=== PATIENT | female | born 1960 | race Caucasian/White ===

== ENCOUNTER 2019-12-18 13:14 | Emergency (ER) | payer OTHER ==
[~2019-12-18] VITALS: Ht 177.8 cm; Wt 54.4 kg
[~2019-12-18 13:14] MED LIST: BENTYL20 MG PO; CIPROFLOXACIN500 MG PO; FLAGYL500 MG PO; HYDROCODONE BIT1 T11 PO; LOMOTIL 0.025 M1 TA1 PO; PREDNICOT20 MG PO; ULTRAM50 MG PO
[2019-12-18 15:11] LABS: BASO # 0.1 10*3/uL (0.0-0.1); BASO % 0.9 % (0.0-1.0); EOS # 0.2 10*3/uL (0.0-0.4); EOS % 2.3 % (1.0-4.0); HEMATOCRIT 39.7 % (37.0-47.0); LYMPH # 1.6 10*3/uL (1.3-4.4); MEAN CELL VOLUME 95.4 fl (81.0-99.0); MEAN CORPUSCULAR HGB 31.5 pg (27.0-31.0); MEAN PLATELET VOLUME 9.3 fl (9.6-12.3); MONO # 0.6 10*3/uL (0.1-1.0); MONO % 7.1 % (3.0-9.0); NEUT # 5.5 10*3/uL (2.3-7.9); NEUT % 69.6 % (47.0-73.0); PLATELET COUNT AUTOMATED 363 10*3/uL (130-400); RED BLOOD COUNT 4.16 10*6/uL (4.10-5.10); RED CELL DISTRI WIDTH 12.4 % (0-14.5); WHITE BLOOD COUNT 7.9 10*3/uL (4.8-10.8)
[2019-12-18 15:22] LABS: ACT PARTIAL THROMBO TIME 27.3 SECONDS (20.0-32.1); INTERNATIONAL NORM RATIO 0.9 (2.0-3.5)
[2019-12-18 15:31] LABS: ALBUMIN 3.7 gm/dl (3.1-4.5); ALKALINE PHOSPHATASE 83 U/L (45-117); BUN 10 mg/dl (7-24); CHLORIDE 108 mmol/L (98-107); CREATININE 0.63 mg/dL (0.55-1.02); LIPASE 116 U/L (73-393); POTASSIUM 3.8 mmol/L (3.5-5.1); SGOT/AST 15 IU/L (3-35); SGPT/ALT 14 U/L (12-78); SODIUM 142 mmol/L (136-145); TOTAL PROTEIN 7.3 gm/dL (6.4-8.2); TROPONIN I < 0.015 ng/ml (<0.045)
[2019-12-18 16:25] LABS: BILIRUBIN Negative (Negative); BLOOD Negative (Negative); CLARITY Clear (Clear); COLOR Yellow (Yellow); GLUCOSE Negative (Negative); KETONE Negative (Negative); LEUKO ESTERASE Trace (Negative); NITRITE Negative (Negative)
[2019-12-18 16:46] LABS: EPITHELIAL CELLS 0-2; WBC 0-2 wbc/hpf (0-5)
[2019-12-18] MEDS ORDERED: PERCOCET 5-3251 EACH PO (17:11)
[2019-12-18] MEDS ORDERED: ZOFRAN4 MG PO (17:11)
== END 2019-12-18 17:12 | disposition home or self-care (01) ==
LOC: ED 13:14
PROVIDERS: Emergency Medicine
DX: R10.9 Unspecified abdominal pain (principal); Z91.041 Radiographic dye allergy status; Z88.8 Allergy status to other drugs, medicaments and biological substances; Z88.5 Allergy status to narcotic agent; Z79.899 Other long term (current) drug therapy

== ENCOUNTER 2019-12-22 10:34 | Emergency (ER) | payer OTHER ==
[~2019-12-22] VITALS: Wt 54.4 kg
[~2019-12-22 10:34] MED LIST changes: +PERCOCET 5-3251 EACH PO; +ZOFRAN4 MG PO
[2019-12-22 10:59] LABS: BASO # 0.1 10*3/uL (0.0-0.1); BASO % 0.9 % (0.0-1.0); EOS # 0.3 10*3/uL (0.0-0.4); LYMPH # 1.2 10*3/uL (1.3-4.4); LYMPH % 12.3 % (27.0-41.0); MEAN CELL VOLUME 96.7 fl (81.0-99.0); MEAN CORPUSCULAR HGB 31.6 pg (27.0-31.0); MEAN CORPUSCULAR HGB CONC 32.7 g/dl (33.0-37.0); MEAN PLATELET VOLUME 9.2 fl (9.6-12.3); MONO # 0.6 10*3/uL (0.1-1.0); MONO % 6.2 % (3.0-9.0); NEUT # 7.8 10*3/uL (2.3-7.9); NEUT % 77.3 % (47.0-73.0); PLATELET COUNT AUTOMATED 369 10*3/uL (130-400); RED BLOOD COUNT 4.24 10*6/uL (4.10-5.10); RED CELL DISTRI WIDTH 12.3 % (0-14.5)
[2019-12-22 11:15] LABS: ALBUMIN 3.9 gm/dl (3.1-4.5); ALKALINE PHOSPHATASE 87 U/L (45-117); BUN 8 mg/dl (7-24); CHLORIDE 109 mmol/L (98-107); CREATININE 0.71 mg/dL (0.55-1.02); LIPASE 88 U/L (73-393); SGOT/AST 19 IU/L (3-35); SGPT/ALT 15 U/L (12-78); SODIUM 141 mmol/L (136-145); TOTAL PROTEIN 7.5 gm/dL (6.4-8.2)
[2019-12-22] MEDS ORDERED: PRILOSEC20 M1 PO (12:04)
[2019-12-22] MEDS ORDERED: REGLAN5 MG PO (12:04)
== END 2019-12-22 12:08 | disposition home or self-care (01) ==
LOC: ED 10:34
PROVIDERS: Nurse Practitioner Family
DX: R10.32 Left lower quadrant pain (principal); Z91.041 Radiographic dye allergy status; Z88.5 Allergy status to narcotic agent; Z88.8 Allergy status to other drugs, medicaments and biological substances; Z79.899 Other long term (current) drug therapy

== ENCOUNTER 2020-01-29 15:49 | Emergency (ER) | payer OTHER ==
[~2020-01-29] VITALS: Wt 54.4 kg
[~2020-01-29 15:49] MED LIST changes: +PRILOSEC20 M1 PO; +REGLAN5 MG PO
[2020-01-29 18:13] LABS: BASO # 0.1 10*3/uL (0.0-0.1); BASO % 0.7 % (0.0-1.0); EOS # 0.1 10*3/uL (0.0-0.4); EOS % 1.4 % (1.0-4.0); HEMATOCRIT 37.6 % (37.0-47.0); LYMPH # 1.7 10*3/uL (1.3-4.4); LYMPH % 19.8 % (27.0-41.0); MEAN CELL VOLUME 94.5 fl (81.0-99.0); MEAN CORPUSCULAR HGB 30.9 pg (27.0-31.0); MEAN CORPUSCULAR HGB CONC 32.7 g/dl (33.0-37.0); MEAN PLATELET VOLUME 9.4 fl (9.6-12.3); MONO # 0.5 10*3/uL (0.1-1.0); MONO % 5.7 % (3.0-9.0); NEUT # 6.2 10*3/uL (2.3-7.9); NEUT % 72.2 % (47.0-73.0); PLATELET COUNT AUTOMATED 337 10*3/uL (130-400); RED BLOOD COUNT 3.98 10*6/uL (4.10-5.10); RED CELL DISTRI WIDTH 12.5 % (0-14.5); WHITE BLOOD COUNT 8.5 10*3/uL (4.8-10.8)
[2020-01-29 18:22] LABS: BILIRUBIN Negative (Negative); BLOOD 3+ (Negative); CLARITY Cloudy (Clear); COLOR Orange (Yellow); GLUCOSE Negative (Negative); KETONE Trace (Negative); LEUKO ESTERASE 1+ (Negative); NITRITE Negative (Negative); SPECIFIC GRAVITY 1.025 (1.001-1.030)
[2020-01-29 18:29] LABS: ALBUMIN 3.6 gm/dl (3.1-4.5); ALKALINE PHOSPHATASE 82 U/L (45-117); BUN 10 mg/dl (7-24); CHLORIDE 112 mmol/L (98-107); CREATININE 0.66 mg/dL (0.55-1.02); POTASSIUM 3.5 mmol/L (3.5-5.1); SGOT/AST 13 IU/L (3-35); SGPT/ALT 18 U/L (12-78); SODIUM 143 mmol/L (136-145); TOTAL PROTEIN 6.8 gm/dL (6.4-8.2)
[2020-01-29 18:43] LABS: BACTERIA 1+; EPITHELIAL CELLS 21-30; RBC 0-2 rbc/hpf (0-2)
[2020-01-29] MEDS ORDERED: KEFLEX500 M1 PO (21:36)
== END 2020-01-29 21:56 | disposition left against medical advice (07) ==
LOC: ED 15:49
PROVIDERS: Nurse Practitioner
DX: N39.0 Urinary tract infection, site not specified (principal); K56.7 Ileus, unspecified; Z88.8 Allergy status to other drugs, medicaments and biological substances; Z88.5 Allergy status to narcotic agent; Z91.041 Radiographic dye allergy status

== ENCOUNTER 2020-04-01 14:12 | Emergency (ER) | payer OTHER ==
[~2020-04-01] VITALS: Ht 177.8 cm; Wt 54.4 kg
[~2020-04-01 14:12] MED LIST changes: +KEFLEX500 M1 PO
[2020-04-01 14:48] LABS: BASO # 0.1 10*3/uL (0.0-0.1); EOS # 0.2 10*3/uL (0.0-0.4); EOS % 2.6 % (1.0-4.0); HEMATOCRIT 40.6 % (37.0-47.0); LYMPH # 2.1 10*3/uL (1.3-4.4); LYMPH % 23.4 % (27.0-41.0); MEAN CELL VOLUME 97.4 fl (81.0-99.0); MEAN CORPUSCULAR HGB 31.7 pg (27.0-31.0); MEAN CORPUSCULAR HGB CONC 32.5 g/dl (33.0-37.0); MEAN PLATELET VOLUME 9.6 fl (9.6-12.3); MONO # 0.6 10*3/uL (0.1-1.0); MONO % 6.1 % (3.0-9.0); NEUT % 66.7 % (47.0-73.0); PLATELET COUNT AUTOMATED 351 10*3/uL (130-400); RED BLOOD COUNT 4.17 10*6/uL (4.10-5.10); RED CELL DISTRI WIDTH 13.1 % (0-14.5)
[2020-04-01 15:05] LABS: ALBUMIN 4.1 gm/dl (3.1-4.5); ALKALINE PHOSPHATASE 100 U/L (45-117); BUN 12 mg/dl (7-24); CHLORIDE 108 mmol/L (98-107); CREATININE 1.13 mg/dL (0.55-1.02); LIPASE 88 U/L (73-393); POTASSIUM 3.7 mmol/L (3.5-5.1); SGOT/AST 14 IU/L (3-35); SGPT/ALT 20 U/L (12-78); SODIUM 141 mmol/L (136-145); TOTAL PROTEIN 7.9 gm/dL (6.4-8.2)
[2020-04-01 15:21] LABS: BILIRUBIN Negative (Negative); BLOOD Negative (Negative); CLARITY Cloudy (Clear); COLOR Dark Yellow (Yellow); GLUCOSE Negative (Negative); KETONE Trace (Negative); LEUKO ESTERASE 1+ (Negative); NITRITE Negative (Negative); SPECIFIC GRAVITY >= 1.030 (1.001-1.030)
[2020-04-01 15:33] LABS: BACTERIA 1+; EPITHELIAL CELLS 16-20
[2020-04-01] MEDS ORDERED: PERCOCET 5-3251 EACH PO (17:07)
[2020-04-01] MEDS ORDERED: CIPRO250 MG PO (17:16)
== END 2020-04-01 17:56 | disposition home or self-care (01) ==
LOC: ED 14:12
PROVIDERS: Nurse Practitioner
DX: N39.0 Urinary tract infection, site not specified (principal); K52.9 Noninfective gastroenteritis and colitis, unspecified; F17.200 Nicotine dependence, unspecified, uncomplicated; Z91.041 Radiographic dye allergy status; Z88.6 Allergy status to analgesic agent; Z88.5 Allergy status to narcotic agent; Z79.2 Long term (current) use of antibiotics; Z79.899 Other long term (current) drug therapy; Z90.49 Acquired absence of other specified parts of digestive tract; Z90.711 Acquired absence of uterus with remaining cervical stump; Z87.442 Personal history of urinary calculi

== ENCOUNTER 2020-04-03 12:20 | Emergency (ER) | payer OTHER ==
[~2020-04-03] VITALS: Wt 54.4 kg
[~2020-04-03 12:20] MED LIST changes: +CIPRO250 MG PO
[2020-04-03 12:57] LABS: BASO # 0.1 10*3/uL (0.0-0.1); BASO % 0.7 % (0.0-1.0); EOS # 0.1 10*3/uL (0.0-0.4); EOS % 1.5 % (1.0-4.0); HEMATOCRIT 38.3 % (37.0-47.0); LYMPH # 1.4 10*3/uL (1.3-4.4); MEAN CELL VOLUME 96.7 fl (81.0-99.0); MEAN CORPUSCULAR HGB 31.8 pg (27.0-31.0); MEAN CORPUSCULAR HGB CONC 32.9 g/dl (33.0-37.0); MEAN PLATELET VOLUME 9.8 fl (9.6-12.3); MONO # 0.5 10*3/uL (0.1-1.0); MONO % 5.4 % (3.0-9.0); NEUT # 7.5 10*3/uL (2.3-7.9); NEUT % 78.1 % (47.0-73.0); PLATELET COUNT AUTOMATED 353 10*3/uL (130-400); RED BLOOD COUNT 3.96 10*6/uL (4.10-5.10); RED CELL DISTRI WIDTH 12.9 % (0-14.5); WHITE BLOOD COUNT 9.6 10*3/uL (4.8-10.8)
[2020-04-03 13:12] LABS: ALBUMIN 3.7 gm/dl (3.1-4.5); ALKALINE PHOSPHATASE 89 U/L (45-117); BUN 10 mg/dl (7-24); CHLORIDE 110 mmol/L (98-107); CREATININE 0.69 mg/dL (0.55-1.02); LIPASE 90 U/L (73-393); POTASSIUM 3.9 mmol/L (3.5-5.1); SGOT/AST 8 IU/L (3-35); SGPT/ALT 17 U/L (12-78); SODIUM 139 mmol/L (136-145); TOTAL PROTEIN 7.1 gm/dL (6.4-8.2)
[2020-04-03 13:19] LABS: BILIRUBIN Negative (Negative); BLOOD Negative (Negative); CLARITY Clear (Clear); COLOR Yellow (Yellow); GLUCOSE Negative (Negative); KETONE Negative (Negative); LEUKO ESTERASE Negative (Negative); NITRITE Negative (Negative); PH 7.5 (4.5-8.0); SPECIFIC GRAVITY 1.015 (1.001-1.030); UROBILINOGEN 0.2 E.U./dl (0.0-1.0)
[2020-04-03 13:29] LABS: BACTERIA TRACE; RBC 0-2 rbc/hpf (0-2); WBC 0-2 wbc/hpf (0-5)
== END 2020-04-03 14:38 | disposition home or self-care (01) ==
LOC: ED 12:20
PROVIDERS: Emergency Medicine
DX: R10.9 Unspecified abdominal pain (principal); Z91.041 Radiographic dye allergy status; Z88.5 Allergy status to narcotic agent; Z88.8 Allergy status to other drugs, medicaments and biological substances; Z79.899 Other long term (current) drug therapy

== ENCOUNTER → 2020-07-27 | Emergency (ER) | payer OTHER ==
[~2020-07-27] VITALS: Ht 177.8 cm; Wt 59.0 kg
== END ==
LOC: ED 15:56
DX: R07.0 Pain in throat (principal); F17.200 Nicotine dependence, unspecified, uncomplicated; Z85.01 Personal history of malignant neoplasm of esophagus; Z85.21 Personal history of malignant neoplasm of larynx; Z91.041 Radiographic dye allergy status; Z88.6 Allergy status to analgesic agent; Z88.5 Allergy status to narcotic agent; Z88.8 Allergy status to other drugs, medicaments and biological substances; Z79.2 Long term (current) use of antibiotics; Z79.899 Other long term (current) drug therapy; Z90.711 Acquired absence of uterus with remaining cervical stump; Z90.49 Acquired absence of other specified parts of digestive tract

== ENCOUNTER 2020-08-30 10:59 | Emergency (ER) | payer OTHER ==
[~2020-08-30] VITALS: Ht 177.8 cm; Wt 59.0 kg
[2020-08-30 12:20] LABS: BASO # 0.1 10*3/uL (0.0-0.1); BASO % 0.6 % (0.0-1.0); EOS # 0.1 10*3/uL (0.0-0.4); EOS % 1.4 % (1.0-4.0); LYMPH # 1.3 10*3/uL (1.3-4.4); LYMPH % 15.1 % (27.0-41.0); MEAN CELL VOLUME 96.2 fl (81.0-99.0); MEAN CORPUSCULAR HGB 31.3 pg (27.0-31.0); MEAN CORPUSCULAR HGB CONC 32.6 g/dl (33.0-37.0); MEAN PLATELET VOLUME 9.7 fl (9.6-12.3); MONO # 0.6 10*3/uL (0.1-1.0); MONO % 6.8 % (3.0-9.0); NEUT # 6.5 10*3/uL (2.3-7.9); NEUT % 75.9 % (47.0-73.0); PLATELET COUNT AUTOMATED 353 10*3/uL (130-400); RED BLOOD COUNT 4.47 10*6/uL (4.10-5.10); RED CELL DISTRI WIDTH 12.9 % (0-14.5); WHITE BLOOD COUNT 8.5 10*3/uL (4.8-10.8)
[2020-08-30 12:38] LABS: ALBUMIN 3.9 gm/dl (3.1-4.5); ALKALINE PHOSPHATASE 88 U/L (45-117); BUN 9 mg/dl (7-24); CHLORIDE 109 mmol/L (98-107); CREATININE 0.65 mg/dL (0.55-1.02); LIPASE 73 U/L (73-393); POTASSIUM 3.8 mmol/L (3.5-5.1); SGOT/AST 13 IU/L (3-35); SGPT/ALT 16 U/L (12-78); SODIUM 140 mmol/L (136-145); TOTAL PROTEIN 7.4 gm/dL (6.4-8.2)
[2020-08-30 13:35] LABS: BILIRUBIN 1+ (Negative); BLOOD Negative (Negative); CLARITY Clear (Clear); COLOR Dark Yellow (Yellow); GLUCOSE Negative (Negative); KETONE 1+ (Negative); LEUKO ESTERASE Trace (Negative); NITRITE Negative (Negative); PH 7.5 (4.5-8.0); SPECIFIC GRAVITY >= 1.030 (1.001-1.030)
[2020-08-30 14:05] LABS: MUCOUS 1+
[2020-08-30] MEDS ORDERED: HYDROCODONE-AC1 EAC1 PO (16:44)
[2020-08-30] MEDS ORDERED: ZOFRAN4 MG PO (16:44)
== END 2020-08-30 17:15 | disposition home or self-care (01) ==
LOC: ED 10:59
PROVIDERS: Physician Assistant
DX: R10.9 Unspecified abdominal pain (principal); R19.7 Diarrhea, unspecified; F17.200 Nicotine dependence, unspecified, uncomplicated; Z91.041 Radiographic dye allergy status; Z88.6 Allergy status to analgesic agent; Z88.5 Allergy status to narcotic agent; Z88.8 Allergy status to other drugs, medicaments and biological substances; Z79.899 Other long term (current) drug therapy; Z79.2 Long term (current) use of antibiotics; Z90.711 Acquired absence of uterus with remaining cervical stump; Z90.49 Acquired absence of other specified parts of digestive tract

== ENCOUNTER 2020-09-19 10:27 | Emergency (ER) | payer OTHER ==
[~2020-09-19] VITALS: Ht 177.8 cm; Wt 59.9 kg
[~2020-09-19 10:27] MED LIST changes: +HYDROCODONE-AC1 EAC1 PO
[2020-09-19 11:53] LABS: BASO # 0.1 10*3/uL (0.0-0.1); BASO % 0.6 % (0.0-1.0); EOS # 0.1 10*3/uL (0.0-0.4); EOS % 1.2 % (1.0-4.0); HEMATOCRIT 45.1 % (37.0-47.0); LYMPH # 1.4 10*3/uL (1.3-4.4); LYMPH % 13.2 % (27.0-41.0); MEAN CELL VOLUME 96.8 fl (81.0-99.0); MEAN CORPUSCULAR HGB 31.3 pg (27.0-31.0); MEAN CORPUSCULAR HGB CONC 32.4 g/dl (33.0-37.0); MONO # 0.8 10*3/uL (0.1-1.0); MONO % 7.2 % (3.0-9.0); NEUT # 8.1 10*3/uL (2.3-7.9); NEUT % 77.5 % (47.0-73.0); PLATELET COUNT AUTOMATED 380 10*3/uL (130-400); RED BLOOD COUNT 4.66 10*6/uL (4.10-5.10); RED CELL DISTRI WIDTH 12.8 % (0-14.5); WHITE BLOOD COUNT 10.4 10*3/uL (4.8-10.8)
[2020-09-19 11:56] LABS: BILIRUBIN 1+ (Negative); BLOOD Negative (Negative); CLARITY Cloudy (Clear); COLOR Dark Yellow (Yellow); GLUCOSE Negative (Negative); KETONE Trace (Negative); LEUKO ESTERASE 1+ (Negative); NITRITE Negative (Negative); SPECIFIC GRAVITY >= 1.030 (1.001-1.030)
[2020-09-19 12:25] LABS: RBC 0-2 rbc/hpf (0-2)
[2020-09-19 12:26] LABS: BACTERIA 1+; MUCOUS 2+; YEAST TRACE
[2020-09-19 12:27] LABS: ALBUMIN 4.1 gm/dl (3.1-4.5); ALKALINE PHOSPHATASE 92 U/L (45-117); BUN 12 mg/dl (7-24); CHLORIDE 109 mmol/L (98-107); CREATININE 0.76 mg/dL (0.55-1.02); LIPASE 80 U/L (73-393); POTASSIUM 4.3 mmol/L (3.5-5.1); SGOT/AST 27 IU/L (3-35); SGPT/ALT 20 U/L (12-78); SODIUM 138 mmol/L (136-145); TOTAL PROTEIN 8.2 gm/dL (6.4-8.2)
[2020-09-19] MEDS ORDERED: PERCOCET 5-3251 EACH PO (14:10)
[2020-09-19] MEDS ORDERED: ZOFRAN4 MG PO (14:34)
== END 2020-09-19 14:28 | disposition home or self-care (01) ==
LOC: ED 10:27
PROVIDERS: Physician Assistant
DX: R10.30 Lower abdominal pain, unspecified (principal); R11.0 Nausea; R63.0 Anorexia; Z91.041 Radiographic dye allergy status; Z88.6 Allergy status to analgesic agent; Z79.899 Other long term (current) drug therapy

== ENCOUNTER 2020-10-18 18:36 | Emergency (ER) | payer OTHER ==
[~2020-10-18] VITALS: Wt 59.0 kg
[2020-10-18 19:43] LABS: BILIRUBIN Negative (Negative); BLOOD 3+ (Negative); CLARITY Clear (Clear); COLOR Red (Yellow); GLUCOSE Negative (Negative); KETONE Negative (Negative); LEUKO ESTERASE 1+ (Negative); NITRITE Negative (Negative); PH 6.5 (4.5-8.0); UROBILINOGEN 0.2 E.U./dl (0.0-1.0)
[2020-10-18 19:53] LABS: BACTERIA 1+; RBC 0-2 rbc/hpf (0-2)
[2020-10-18] MEDS ORDERED: CIPRO500 MG PO (21:20)
== END 2020-10-18 21:56 | disposition home or self-care (01) ==
LOC: ED 18:36
PROVIDERS: Internal Medicine
DX: N39.0 Urinary tract infection, site not specified (principal); F17.200 Nicotine dependence, unspecified, uncomplicated; Z88.6 Allergy status to analgesic agent; Z91.041 Radiographic dye allergy status; Z79.899 Other long term (current) drug therapy

== ENCOUNTER 2020-12-23 20:11 | Emergency (ER) | payer OTHER ==
[~2020-12-23] VITALS: Ht 177.8 cm; Wt 59.0 kg
[~2020-12-23 20:11] MED LIST changes: +CIPRO500 MG PO
[2020-12-23] MEDS ORDERED: MEDROL DOSEPAK4 MG PO (22:55)
== END 2020-12-23 23:33 | disposition home or self-care (01) ==
LOC: ED 20:11
DX: G89.29 Other chronic pain (principal); M54.50 Low back pain, unspecified; F17.200 Nicotine dependence, unspecified, uncomplicated; Z91.041 Radiographic dye allergy status; Z88.6 Allergy status to analgesic agent

== ENCOUNTER 2021-01-24 13:51 | Emergency (ER) | payer OTHER ==
[~2021-01-24] VITALS: Wt 59.0 kg
[~2021-01-24 13:51] MED LIST changes: +MEDROL DOSEPAK4 MG PO
[2021-01-24] MEDS ORDERED: PREDNISONE20 M1 PO (15:33)
== END 2021-01-24 15:49 | disposition home or self-care (01) ==
LOC: ED 13:51
DX: S30.0XXA Contusion of lower back and pelvis, initial encounter (principal); Z88.6 Allergy status to analgesic agent; W01.0XXA Fall on same level from slipping, tripping and stumbling without subsequent striking against object, initial encounter; Y93.89 Activity, other specified; Y92.89 Other specified places as the place of occurrence of the external cause; Y99.8 Other external cause status

== ENCOUNTER 2021-02-17 21:35 | Emergency (ER) | payer OTHER ==
[~2021-02-17] VITALS: Ht 177.8 cm; Wt 59.0 kg
[~2021-02-17 21:35] MED LIST changes: +PREDNISONE20 M1 PO
[2021-02-17 22:22] LABS: BILIRUBIN Negative (Negative); BLOOD Trace-Intact (Negative); CLARITY Clear (Clear); COLOR Yellow (Yellow); GLUCOSE Negative (Negative); KETONE Negative (Negative); LEUKO ESTERASE 1+ (Negative); NITRITE Negative (Negative); PH 7.5 (4.5-8.0); SPECIFIC GRAVITY 1.015 (1.001-1.030)
== END 2021-02-18 00:26 | disposition left against medical advice (07) ==
LOC: ED 21:35
PROVIDERS: Internal Medicine
DX: M54.50 Low back pain, unspecified (principal); Z91.041 Radiographic dye allergy status; Z88.6 Allergy status to analgesic agent

== ENCOUNTER 2021-07-11 10:03 | Emergency (ER) | payer OTHER ==
[~2021-07-11] VITALS: Ht 175.2 cm; Wt 59.0 kg
[2021-07-11] MEDS ORDERED: Motrin,Rufen800 MG PO (10:58)
== END 2021-07-11 10:56 | disposition home or self-care (01) ==
LOC: ED 10:03
DX: M54.50 Low back pain, unspecified (principal); Z91.041 Radiographic dye allergy status; Z88.6 Allergy status to analgesic agent

== ENCOUNTER 2021-08-16 12:38 | Emergency (ER) | payer OTHER ==
[~2021-08-16] VITALS: Wt 61.2 kg
[~2021-08-16 12:38] MED LIST changes: +Motrin,Rufen800 MG PO
[2021-08-16] MEDS ORDERED: IBU800 M1 PO (13:18)
== END 2021-08-16 13:24 | disposition home or self-care (01) ==
LOC: ED 12:38
DX: M54.40 Lumbago with sciatica, unspecified side (principal); Z88.6 Allergy status to analgesic agent; Z91.041 Radiographic dye allergy status; Z90.49 Acquired absence of other specified parts of digestive tract; Z90.710 Acquired absence of both cervix and uterus

== ENCOUNTER 2022-02-20 14:23 | Emergency (ER) | payer OTHER ==
[~2022-02-20] VITALS: Wt 57.6 kg
[~2022-02-20 14:23] MED LIST changes: +IBU800 M1 PO
[2022-02-20 14:59] LABS: BASO # 0.1 10*3/uL (0.0-0.1); BASO % 1.1 % (0.0-1.0); EOS # 0.2 10*3/uL (0.0-0.4); EOS % 2.9 % (1.0-4.0); HEMATOCRIT 36.7 % (37.0-47.0); LYMPH # 2.1 10*3/uL (1.3-4.4); LYMPH % 28.6 % (27.0-41.0); MEAN CELL VOLUME 95.8 fl (81.0-99.0); MEAN CORPUSCULAR HGB 32.4 pg (27.0-31.0); MEAN CORPUSCULAR HGB CONC 33.8 g/dl (33.0-37.0); MEAN PLATELET VOLUME 9.6 fl (9.6-12.3); MONO # 0.6 10*3/uL (0.1-1.0); MONO % 8.2 % (3.0-9.0); NEUT # 4.4 10*3/uL (2.3-7.9); NEUT % 59.1 % (47.0-73.0); PLATELET COUNT AUTOMATED 310 10*3/uL (130-400); RED BLOOD COUNT 3.83 10*6/uL (4.10-5.10); RED CELL DISTRI WIDTH 13.5 % (0-14.5); WHITE BLOOD COUNT 7.5 10*3/uL (4.8-10.8)
[2022-02-20 15:15] LABS: ALKALINE PHOSPHATASE 66 U/L (46-116); BUN 7 mg/dl (9-23); CHLORIDE 108 mmol/L (98-107); POTASSIUM 3.5 mmol/L (3.4-5.1); TOTAL PROTEIN 6.6 gm/dL (6.0-8.0)
[2022-02-20 15:17] LABS: SGPT/ALT < 7 U/L (10-49)
[2022-02-20 15:31] LABS: BILIRUBIN Negative (Negative); BLOOD Negative (Negative); CLARITY Clear (Clear); COLOR Yellow (Yellow); GLUCOSE Negative (Negative); KETONE Negative (Negative); LEUKO ESTERASE Negative (Negative); NITRITE Negative (Negative); PH 6.5 (4.5-8.0); SPECIFIC GRAVITY <= 1.005 (1.001-1.030); UROBILINOGEN 0.2 E.U./dl (0.0-1.0)
[2022-02-20 15:58] LABS: BACTERIA TRACE
[2022-02-20 15:59] LABS: RBC 0-2 rbc/hpf (0-2); WBC 0-2 wbc/hpf (0-5)
[2022-02-20] MEDS ORDERED: PREDNISONE20 M1 PO (16:14)
[2022-02-20] MEDS ORDERED: Motrin,Rufen800 MG PO (16:15)
== END 2022-02-20 16:30 | disposition home or self-care (01) ==
LOC: ED 14:23
PROVIDERS: Nurse Practitioner Family
DX: S39.012A Strain of muscle, fascia and tendon of lower back, initial encounter (principal); Z87.442 Personal history of urinary calculi; Z91.041 Radiographic dye allergy status; Z88.5 Allergy status to narcotic agent; Z88.8 Allergy status to other drugs, medicaments and biological substances; Z90.710 Acquired absence of both cervix and uterus; Z90.49 Acquired absence of other specified parts of digestive tract; X58.XXXA Exposure to other specified factors, initial encounter; Y93.89 Activity, other specified; Y92.89 Other specified places as the place of occurrence of the external cause; Y99.8 Other external cause status

== ENCOUNTER 2022-03-16 11:09 | Emergency (ER) | payer OTHER ==
[~2022-03-16] VITALS: Ht 177.8 cm; Wt 57.6 kg
[2022-03-16 12:05] LABS: BILIRUBIN Negative (Negative); BLOOD Negative (Negative); CLARITY Clear (Clear); COLOR Yellow (Yellow); GLUCOSE Negative (Negative); KETONE Negative (Negative); LEUKO ESTERASE Trace (Negative); NITRITE Negative (Negative); PH 6.5 (4.5-8.0)
[2022-03-16 12:25] LABS: BACTERIA 2+; EPITHELIAL CELLS 51-100; RBC 0-2 rbc/hpf (0-2); WBC 0-2 wbc/hpf (0-5)
[2022-03-16] MEDS ORDERED: OXYCODON-ACETA1 EACH PO (13:05)
[2022-03-16] MEDS ORDERED: IBU800 MG PO (13:05)
== END 2022-03-16 13:19 | disposition home or self-care (01) ==
LOC: ED 11:09
PROVIDERS: Nurse Practitioner Family
DX: M54.50 Low back pain, unspecified (principal); Z91.041 Radiographic dye allergy status; Z88.5 Allergy status to narcotic agent; Z88.8 Allergy status to other drugs, medicaments and biological substances; Z90.710 Acquired absence of both cervix and uterus; Z90.49 Acquired absence of other specified parts of digestive tract; Z79.899 Other long term (current) drug therapy

== ENCOUNTER 2022-03-29 11:34 | Emergency (ER) | payer OTHER ==
[~2022-03-29 11:34] MED LIST changes: +IBU800 MG PO; +OXYCODON-ACETA1 EACH PO
[2022-03-29 14:40] LABS: BASO # 0.1 10*3/uL (0.0-0.1); BASO % 0.6 % (0.0-1.0); EOS # 0.1 10*3/uL (0.0-0.4); EOS % 0.5 % (1.0-4.0); HEMATOCRIT 39.5 % (37.0-47.0); LYMPH # 2.5 10*3/uL (1.3-4.4); LYMPH % 18.1 % (27.0-41.0); MEAN CELL VOLUME 95.9 fl (81.0-99.0); MEAN CORPUSCULAR HGB 31.8 pg (27.0-31.0); MEAN CORPUSCULAR HGB CONC 33.2 g/dl (33.0-37.0); MEAN PLATELET VOLUME 9.8 fl (9.6-12.3); MONO # 1.5 10*3/uL (0.1-1.0); MONO % 10.8 % (3.0-9.0); NEUT # 9.4 10*3/uL (2.3-7.9); NEUT % 69.6 % (47.0-73.0); PLATELET COUNT AUTOMATED 323 10*3/uL (130-400); RED BLOOD COUNT 4.12 10*6/uL (4.10-5.10); RED CELL DISTRI WIDTH 13.2 % (0-14.5); WHITE BLOOD COUNT 13.6 10*3/uL (4.8-10.8)
[2022-03-29 14:47] LABS: BILIRUBIN 2+ (Negative); BLOOD Negative (Negative); CLARITY Cloudy (Clear); COLOR Dark Yellow (Yellow); GLUCOSE Negative (Negative); KETONE Trace (Negative); LEUKO ESTERASE 1+ (Negative); NITRITE Negative (Negative); PH 5.5 (4.5-8.0); SPECIFIC GRAVITY 1.025 (1.001-1.030)
[2022-03-29 14:58] LABS: ALKALINE PHOSPHATASE 68 U/L (46-116); BUN 12 mg/dl (9-23); CHLORIDE 106 mmol/L (98-107); LIPASE 27 U/L (12-53); POTASSIUM 3.4 mmol/L (3.4-5.1); TOTAL PROTEIN 6.7 gm/dL (6.0-8.0)
[2022-03-29 15:00] LABS: SGPT/ALT < 7 U/L (10-49)
[2022-03-29 15:26] LABS: BACTERIA 2+; MUCOUS 2+; RBC 0-2 rbc/hpf (0-2)
[2022-03-29] MEDS ORDERED: AMOX-CLAV 875-1 EACH PO (15:37)
== END 2022-03-29 15:40 | disposition home or self-care (01) ==
LOC: ED 11:34
PROVIDERS: Internal Medicine
DX: A41.9 Sepsis, unspecified organism (principal); K57.32 Diverticulitis of large intestine without perforation or abscess without bleeding; Z91.041 Radiographic dye allergy status; Z88.8 Allergy status to other drugs, medicaments and biological substances; Z90.710 Acquired absence of both cervix and uterus; Z90.49 Acquired absence of other specified parts of digestive tract; Z87.442 Personal history of urinary calculi

== ENCOUNTER 2022-04-15 13:16 | Emergency (ER) | payer OTHER ==
[~2022-04-15] VITALS: Ht 175.2 cm; Wt 59.0 kg
[~2022-04-15 13:16] MED LIST changes: +AMOX-CLAV 875-1 EACH PO
[2022-04-15] MEDS ORDERED: VIBRAMYCIN100 MG PO (18:57)
== END 2022-04-15 19:16 | disposition home or self-care (01) ==
LOC: ED 13:16
DX: N61.0 Mastitis without abscess (principal); Z88.8 Allergy status to other drugs, medicaments and biological substances; Z91.041 Radiographic dye allergy status; Z90.710 Acquired absence of both cervix and uterus; Z90.49 Acquired absence of other specified parts of digestive tract

== ENCOUNTER 2022-05-15 13:01 | Emergency (ER) | payer OTHER ==
[~2022-05-15] VITALS: Ht 175.2 cm; Wt 59.0 kg
[~2022-05-15 13:01] MED LIST changes: +VIBRAMYCIN100 MG PO
== END 2022-05-15 13:51 | disposition home or self-care (01) ==
LOC: ED 13:01
DX: J02.9 Acute pharyngitis, unspecified (principal); H92.02 Otalgia, left ear; Z91.041 Radiographic dye allergy status; Z87.442 Personal history of urinary calculi; Z88.5 Allergy status to narcotic agent; Z88.8 Allergy status to other drugs, medicaments and biological substances; Z90.710 Acquired absence of both cervix and uterus; Z90.49 Acquired absence of other specified parts of digestive tract

== ENCOUNTER 2022-05-31 16:56 | Emergency (ER) | payer OTHER ==
[~2022-05-31] VITALS: Ht 175.2 cm; Wt 59.0 kg
[2022-05-31] MEDS ORDERED: HYDROCODONE-AC1 EAC1 PO (17:33)
== END 2022-05-31 18:18 | disposition home or self-care (01) ==
LOC: ED 16:56
DX: N64.4 Mastodynia (principal); Z87.442 Personal history of urinary calculi; Z91.041 Radiographic dye allergy status; Z88.5 Allergy status to narcotic agent; Z88.8 Allergy status to other drugs, medicaments and biological substances; Z90.710 Acquired absence of both cervix and uterus; Z90.49 Acquired absence of other specified parts of digestive tract

== ENCOUNTER 2022-06-12 11:07 | Emergency (ER) | payer OTHER | END 2022-06-12 11:12 | disposition left against medical advice (07) | LOC: ED 11:07 | DX: R10.9 Unspecified abdominal pain (principal); R19.7 Diarrhea, unspecified; Z53.21 Procedure and treatment not carried out due to patient leaving prior to being seen by health care provider ==

== ENCOUNTER 2022-06-18 09:29 | Emergency (ER) | payer OTHER ==
[~2022-06-18] VITALS: Ht 177.8 cm; Wt 59.0 kg
[2022-06-18 10:14] LABS: BASO # 0.1 10*3/uL (0.0-0.1); BASO % 1.2 % (0.0-1.0); EOS # 0.4 10*3/uL (0.0-0.4); EOS % 5.4 % (1.0-4.0); HEMATOCRIT 43.5 % (37.0-47.0); LYMPH # 1.5 10*3/uL (1.3-4.4); LYMPH % 23.5 % (27.0-41.0); MEAN CELL VOLUME 95.6 fl (81.0-99.0); MEAN CORPUSCULAR HGB 31.4 pg (27.0-31.0); MEAN CORPUSCULAR HGB CONC 32.9 g/dl (33.0-37.0); MEAN PLATELET VOLUME 9.6 fl (9.6-12.3); MONO # 0.5 10*3/uL (0.1-1.0); MONO % 7.4 % (3.0-9.0); PLATELET COUNT AUTOMATED 391 10*3/uL (130-400); RED BLOOD COUNT 4.55 10*6/uL (4.10-5.10); RED CELL DISTRI WIDTH 12.9 % (0-14.5); WHITE BLOOD COUNT 6.5 10*3/uL (4.8-10.8)
[2022-06-18 10:41] LABS: ALKALINE PHOSPHATASE 85 U/L (46-116); BUN 7 mg/dl (9-23); CHLORIDE 109 mmol/L (98-107); POTASSIUM 3.9 mmol/L (3.4-5.1); TOTAL PROTEIN 7.2 gm/dL (6.0-8.0)
[2022-06-18 10:42] LABS: SGPT/ALT < 7 U/L (10-49)
[2022-06-18] MEDS ORDERED: CIPRO500 MG PO (12:16)
[2022-06-18] MEDS ORDERED: HYDROCODONE-AC1 EAC1 PO (12:16)
[2022-06-18] MEDS ORDERED: METRONIDAZOLE500 M1 PO (12:16)
== END 2022-06-18 12:25 | disposition home or self-care (01) ==
LOC: ED 09:29
PROVIDERS: Emergency Medicine
DX: R10.32 Left lower quadrant pain (principal); R19.7 Diarrhea, unspecified; Z91.041 Radiographic dye allergy status; Z88.5 Allergy status to narcotic agent; Z88.8 Allergy status to other drugs, medicaments and biological substances; Z87.442 Personal history of urinary calculi; Z90.710 Acquired absence of both cervix and uterus; Z90.49 Acquired absence of other specified parts of digestive tract

== ENCOUNTER 2022-06-20 09:34 | Emergency (ER) | payer OTHER ==
[~2022-06-20] VITALS: Ht 172.7 cm; Wt 65.8 kg
[~2022-06-20 09:34] MED LIST changes: +METRONIDAZOLE500 M1 PO
[2022-06-20 10:19] LABS: BASO # 0.1 10*3/uL (0.0-0.1); BASO % 1.2 % (0.0-1.0); EOS # 0.3 10*3/uL (0.0-0.4); EOS % 3.2 % (1.0-4.0); HEMATOCRIT 40.8 % (37.0-47.0); LYMPH # 1.7 10*3/uL (1.3-4.4); LYMPH % 20.1 % (27.0-41.0); MEAN CELL VOLUME 95.3 fl (81.0-99.0); MEAN CORPUSCULAR HGB 31.3 pg (27.0-31.0); MEAN CORPUSCULAR HGB CONC 32.8 g/dl (33.0-37.0); MEAN PLATELET VOLUME 9.5 fl (9.6-12.3); MONO # 0.6 10*3/uL (0.1-1.0); MONO % 6.8 % (3.0-9.0); NEUT # 5.7 10*3/uL (2.3-7.9); NEUT % 67.9 % (47.0-73.0); PLATELET COUNT AUTOMATED 367 10*3/uL (130-400); RED BLOOD COUNT 4.28 10*6/uL (4.10-5.10); RED CELL DISTRI WIDTH 12.8 % (0-14.5); WHITE BLOOD COUNT 8.3 10*3/uL (4.8-10.8)
[2022-06-20 10:36] LABS: ALKALINE PHOSPHATASE 81 U/L (46-116); BUN 6 mg/dl (9-23); CHLORIDE 109 mmol/L (98-107); LIPASE 39 U/L (12-53); POTASSIUM 3.8 mmol/L (3.4-5.1)
[2022-06-20 10:40] LABS: SGPT/ALT < 7 U/L (10-49)
== END 2022-06-20 10:47 | disposition home or self-care (01) ==
LOC: ED 09:34
PROVIDERS: Emergency Medicine
DX: R10.32 Left lower quadrant pain (principal); R11.2 Nausea with vomiting, unspecified; R19.7 Diarrhea, unspecified; Z91.041 Radiographic dye allergy status; Z88.8 Allergy status to other drugs, medicaments and biological substances; Z90.710 Acquired absence of both cervix and uterus; Z90.49 Acquired absence of other specified parts of digestive tract

== ENCOUNTER 2022-07-04 11:39 | Emergency (ER) | payer OTHER ==
[~2022-07-04] VITALS: Ht 175.2 cm; Wt 59.0 kg
== END 2022-07-04 12:09 | disposition home or self-care (01) ==
LOC: ED 11:39
DX: N64.4 Mastodynia (principal); Z91.041 Radiographic dye allergy status; Z87.442 Personal history of urinary calculi; Z88.5 Allergy status to narcotic agent; Z88.8 Allergy status to other drugs, medicaments and biological substances; Z90.710 Acquired absence of both cervix and uterus; Z90.49 Acquired absence of other specified parts of digestive tract; Z98.890 Other specified postprocedural states

== ENCOUNTER 2022-07-31 11:42 | Emergency (ER) | payer OTHER ==
[~2022-07-31] VITALS: Ht 170.1 cm; Wt 59.0 kg
[2022-07-31] MEDS ORDERED: PREDNISONE50 MG PO (12:00)
== END 2022-07-31 12:24 | disposition home or self-care (01) ==
LOC: ED 11:42
DX: M54.50 Low back pain, unspecified (principal); Z91.041 Radiographic dye allergy status; Z88.5 Allergy status to narcotic agent; Z88.8 Allergy status to other drugs, medicaments and biological substances; Z90.710 Acquired absence of both cervix and uterus; Z90.49 Acquired absence of other specified parts of digestive tract; Z87.442 Personal history of urinary calculi

== ENCOUNTER 2022-10-28 12:19 | Emergency (ER) | payer OTHER ==
[~2022-10-28] VITALS: Wt 57.6 kg
[~2022-10-28 12:19] MED LIST changes: +PREDNISONE50 MG PO
== END 2022-10-28 13:25 | disposition home or self-care (01) ==
LOC: ED 12:19
DX: M54.50 Low back pain, unspecified (principal); Z91.041 Radiographic dye allergy status; Z88.5 Allergy status to narcotic agent; Z88.8 Allergy status to other drugs, medicaments and biological substances; Z90.710 Acquired absence of both cervix and uterus; Z90.49 Acquired absence of other specified parts of digestive tract

== ENCOUNTER 2022-11-18 12:02 | Emergency (ER) | payer OTHER ==
[~2022-11-18] VITALS: Wt 59.0 kg
[2022-11-18 12:59] LABS: BASO # 0.1 10*3/uL (0.0-0.1); BASO % 0.7 % (0.0-1.0); EOS # 0.1 10*3/uL (0.0-0.4); EOS % 0.9 % (1.0-4.0); HEMATOCRIT 40.4 % (37.0-47.0); LYMPH # 1.4 10*3/uL (1.3-4.4); MEAN CELL VOLUME 98.8 fl (81.0-99.0); MEAN CORPUSCULAR HGB CONC 32.4 g/dl (33.0-37.0); MEAN PLATELET VOLUME 9.7 fl (9.6-12.3); MONO # 0.3 10*3/uL (0.1-1.0); MONO % 4.7 % (3.0-9.0); NEUT # 5.2 10*3/uL (2.3-7.9); NEUT % 73.4 % (47.0-73.0); PLATELET COUNT AUTOMATED 308 10*3/uL (130-400); RED BLOOD COUNT 4.09 10*6/uL (4.10-5.10); WHITE BLOOD COUNT 7.1 10*3/uL (4.8-10.8)
[2022-11-18 13:20] LABS: ALKALINE PHOSPHATASE 79 U/L (46-116); BUN 6 mg/dl (9-23); CHLORIDE 109 mmol/L (98-107); LIPASE 25 U/L (12-53); POTASSIUM 3.9 mmol/L (3.4-5.1); SGPT/ALT 11 U/L (10-49); TOTAL PROTEIN 6.8 gm/dL (6.0-8.0)
== END 2022-11-18 13:41 | disposition left against medical advice (07) ==
LOC: ED 12:02
PROVIDERS: Family Medicine
DX: R10.32 Left lower quadrant pain (principal); Z91.041 Radiographic dye allergy status; Z88.5 Allergy status to narcotic agent; Z88.8 Allergy status to other drugs, medicaments and biological substances; Z90.710 Acquired absence of both cervix and uterus; Z90.49 Acquired absence of other specified parts of digestive tract; Z87.442 Personal history of urinary calculi

== ENCOUNTER 2023-04-18 18:21 | Emergency (ER) | payer OTHER ==
[~2023-04-18] VITALS: Ht 175.2 cm; Wt 56.7 kg
[2023-04-18] MEDS ORDERED: methylPREDNISolone sod succ 125 MG VIAL IM ONE (19:05)
[2023-04-18] MEDS ORDERED: OXYCODONE HCL (IR) 5 MG TAB PO ONE (19:05)
== END 2023-04-18 19:25 | disposition home or self-care (01) ==
LOC: ED 18:21
DX: G89.29 Other chronic pain (principal); M54.9 Dorsalgia, unspecified; F17.200 Nicotine dependence, unspecified, uncomplicated; Z91.041 Radiographic dye allergy status; Z88.5 Allergy status to narcotic agent; Z88.6 Allergy status to analgesic agent; Z88.8 Allergy status to other drugs, medicaments and biological substances; Z79.899 Other long term (current) drug therapy; Z79.2 Long term (current) use of antibiotics; Z90.711 Acquired absence of uterus with remaining cervical stump; Z90.49 Acquired absence of other specified parts of digestive tract

== ENCOUNTER 2023-12-11 10:14 | Emergency (ER) | payer OTHER ==
[~2023-12-11] VITALS: Ht 172.7 cm; Wt 51.3 kg
[2023-12-11] MEDS ORDERED: OXYCODONE HCL10 M1 PO (10:40)
[2023-12-11] MEDS ORDERED: ZOLPIDEM10 MG PO (10:41)
[2023-12-11] MEDS ORDERED: HYDROmorphONE Hydrochloride 1 MG/ML SYR IM ONE (11:35)
[2023-12-11] MEDS ORDERED: methylPREDNISolone sod succ 125 MG VIAL IM ONE (11:35)
== END 2023-12-11 12:51 | disposition left against medical advice (07) ==
LOC: ED 10:14
DX: M54.50 Low back pain, unspecified (principal); Z87.442 Personal history of urinary calculi; Z91.041 Radiographic dye allergy status; Z88.5 Allergy status to narcotic agent; Z88.8 Allergy status to other drugs, medicaments and biological substances; Z90.710 Acquired absence of both cervix and uterus; Z90.49 Acquired absence of other specified parts of digestive tract; Z53.29 Procedure and treatment not carried out because of patient's decision for other reasons

== ENCOUNTER 2024-01-15 11:52 | Emergency (ER) | payer OTHER ==
[~2024-01-15] VITALS: Ht 175.2 cm; Wt 50.8 kg
[~2024-01-15 11:52] MED LIST changes: +OXYCODONE HCL10 M1 PO; +ZOLPIDEM10 MG PO
[2024-01-15] MEDS ORDERED: Acetaminophen/Oxycodone 5 MG/325 MG TABLET PO ONE (13:35)
[2024-01-15] MEDS ORDERED: TRIAMCINOLONE ACETONIDE 40 MG/ML VIAL IM ONE (13:35)
== END 2024-01-15 13:55 | disposition home or self-care (01) ==
LOC: ED 11:52
DX: M54.42 Lumbago with sciatica, left side (principal); G89.29 Other chronic pain; M53.9 Dorsopathy, unspecified; M25.552 Pain in left hip; Z87.442 Personal history of urinary calculi; Z91.041 Radiographic dye allergy status; Z88.5 Allergy status to narcotic agent; Z88.8 Allergy status to other drugs, medicaments and biological substances; Z90.49 Acquired absence of other specified parts of digestive tract; Z90.710 Acquired absence of both cervix and uterus

== ENCOUNTER 2024-02-25 12:54 | Emergency (ER) | payer OTHER ==
[~2024-02-25] VITALS: Ht 175.2 cm; Wt 52.2 kg
[2024-02-25] MEDS ORDERED: IBU800 M1 PO (13:15)
[2024-02-25] MEDS ORDERED: HYDROmorphONE Hydrochloride 1 MG/ML SYR IM ONE (13:25)
== END 2024-02-25 14:00 | disposition home or self-care (01) ==
LOC: ED 12:54
DX: G89.29 Other chronic pain (principal); M54.50 Low back pain, unspecified; Z91.041 Radiographic dye allergy status; Z88.5 Allergy status to narcotic agent; Z88.8 Allergy status to other drugs, medicaments and biological substances; Z87.442 Personal history of urinary calculi; Z90.49 Acquired absence of other specified parts of digestive tract; Z90.710 Acquired absence of both cervix and uterus

== ENCOUNTER 2024-03-27 13:40 | Emergency (ER) | payer OTHER ==
[~2024-03-27] VITALS: Ht 175.2 cm; Wt 52.2 kg
[2024-03-27] MEDS ORDERED: HYDROmorphone Hydrochloride 1 MG/ML SYR IM ONE (15:10)
[2024-03-27] MEDS ORDERED: TYLENOL EXTRA500 MG PO (15:22)
== END 2024-03-27 15:38 | disposition home or self-care (01) ==
LOC: ED 13:40
DX: G89.29 Other chronic pain (principal); M54.50 Low back pain, unspecified; M79.605 Pain in left leg; M79.604 Pain in right leg; Z87.442 Personal history of urinary calculi; Z91.041 Radiographic dye allergy status; Z88.5 Allergy status to narcotic agent; Z88.8 Allergy status to other drugs, medicaments and biological substances; Z90.49 Acquired absence of other specified parts of digestive tract; Z90.710 Acquired absence of both cervix and uterus

== ENCOUNTER 2024-05-05 12:29 | Emergency (ER) | payer OTHER ==
[~2024-05-05] VITALS: Ht 175.2 cm; Wt 52.2 kg
[~2024-05-05 12:29] MED LIST changes: +TYLENOL EXTRA500 MG PO
[2024-05-05] MEDS ORDERED: HYDROmorphone Hydrochloride 1 MG/ML SYR IM ONE (13:05)
[2024-05-05] MEDS ORDERED: OXYCONTIN10 M1 PO (13:14)
[2024-05-05] MEDS ORDERED: OXYCODONE HCL10 M1 PO (13:32)
== END 2024-05-05 13:39 | disposition home or self-care (01) ==
LOC: ED 12:29
DX: G89.29 Other chronic pain (principal); M54.50 Low back pain, unspecified; Z91.041 Radiographic dye allergy status; Z88.5 Allergy status to narcotic agent; Z88.6 Allergy status to analgesic agent; Z88.8 Allergy status to other drugs, medicaments and biological substances; Z79.899 Other long term (current) drug therapy; Z90.710 Acquired absence of both cervix and uterus; Z90.49 Acquired absence of other specified parts of digestive tract

== ENCOUNTER 2024-05-22 18:53 | Emergency (ER) | payer OTHER ==
[~2024-05-22] VITALS: Ht 175.3 cm; Wt 52.2 kg
[~2024-05-22 18:53] MED LIST changes: +OXYCONTIN10 M1 PO
[2024-05-22] MEDS ORDERED: Acetaminophen/Hydrocodone HP 10/325 PO ONE (20:00)
== END 2024-05-22 19:59 | disposition home or self-care (01) ==
LOC: ED 18:53
DX: G89.29 Other chronic pain (principal); M54.50 Low back pain, unspecified; Z79.899 Other long term (current) drug therapy; Z88.5 Allergy status to narcotic agent; Z88.6 Allergy status to analgesic agent; Z91.041 Radiographic dye allergy status

== ENCOUNTER 2024-06-02 19:37 | Emergency (ER) | payer OTHER ==
[~2024-06-02] VITALS: Ht 175.2 cm; Wt 54.4 kg
[2024-06-02 20:24] LABS: BASO # 0.1 10*3/uL (0.0-0.1); BASO % 1.4 % (0.0-1.0); EOS # 0.2 10*3/uL (0.0-0.4); EOS % 2.4 % (1.0-4.0); HEMATOCRIT 37.2 % (37.0-47.0); MEAN CELL VOLUME 98.9 fl (81.0-99.0); MEAN CORPUSCULAR HGB 31.9 pg (27.0-31.0); MEAN CORPUSCULAR HGB CONC 32.3 g/dl (33.0-37.0); MEAN PLATELET VOLUME 9.2 fl (9.6-12.3); MONO # 0.6 10*3/uL (0.1-1.0); MONO % 7.9 % (3.0-9.0); NEUT # 4.2 10*3/uL (2.3-7.9); NEUT % 59.2 % (47.0-73.0); PLATELET COUNT AUTOMATED 347 10*3/uL (130-400); RED BLOOD COUNT 3.76 10*6/uL (4.10-5.10); WHITE BLOOD COUNT 7.1 10*3/uL (4.8-10.8)
[2024-06-02 20:41] LABS: BUN 9 mg/dl (9-23); CHLORIDE 108 mmol/L (98-107); POTASSIUM 3.6 mmol/L (3.4-5.1)
[2024-06-02] MEDS ORDERED: HYDROCODONE-AC1 EACH PO (20:46)
[2024-06-02] MEDS ORDERED: LIDOCAINE 1 EA PATCH T ONE (21:00)
[2024-06-02] MEDS ORDERED: LIDOCAINE PAIN1 EACH T (21:03)
== END 2024-06-02 21:09 | disposition home or self-care (01) ==
LOC: ED 19:37
PROVIDERS: Internal Medicine
DX: M54.50 Low back pain, unspecified (principal); Z91.041 Radiographic dye allergy status; Z88.5 Allergy status to narcotic agent; Z88.6 Allergy status to analgesic agent; Z79.899 Other long term (current) drug therapy; Z90.711 Acquired absence of uterus with remaining cervical stump; Z90.49 Acquired absence of other specified parts of digestive tract

== ENCOUNTER 2024-06-19 10:39 | Emergency (ER) | payer OTHER ==
[~2024-06-19] VITALS: Ht 175.2 cm; Wt 52.2 kg
[~2024-06-19 10:39] MED LIST changes: +HYDROCODONE-AC1 EACH PO; +LIDOCAINE PAIN1 EACH T
[2024-06-19] MEDS ORDERED: Acetaminophen/Oxycodone 5 MG/325 MG TABLET PO ONE (11:15)
[2024-06-19] MEDS ORDERED: methylPREDNISolone sod succ 125 MG VIAL IM ONE (11:15)
== END 2024-06-19 11:17 | disposition home or self-care (01) ==
LOC: ED 10:39
DX: G89.29 Other chronic pain (principal); M54.9 Dorsalgia, unspecified; Z79.899 Other long term (current) drug therapy; Z88.5 Allergy status to narcotic agent; Z88.6 Allergy status to analgesic agent; Z91.041 Radiographic dye allergy status; Z98.890 Other specified postprocedural states

== ENCOUNTER 2024-08-17 11:42 | Emergency (ER) | payer OTHER ==
[~2024-08-17] VITALS: Ht 175.2 cm; Wt 52.2 kg
[2024-08-17] MEDS ORDERED: SODIUM CHLORIDE 0.9% 1,000 ML IV ONE ×2 (11:55→12:37)
[2024-08-17] MEDS ORDERED: Metoclopramide Hydrochloride 10 MG/2 ML VIAL IV ONE (11:55)
[2024-08-17] MEDS ORDERED: diphenhydrAMINE hydrochloride 50 MG/ML VIAL IV ONE (11:55)
[2024-08-17 12:07] LABS: BASO # 0.1 10*3/uL (0.0-0.1); BASO % 0.6 % (0.0-1.0); EOS # 0.0 10*3/uL (0.0-0.4); EOS % 0.2 % (1.0-4.0); MEAN CELL VOLUME 96.5 fl (81.0-99.0); MEAN CORPUSCULAR HGB 31.9 pg (27.0-31.0); MEAN PLATELET VOLUME 9.3 fl (9.6-12.3); MONO # 0.4 10*3/uL (0.1-1.0); MONO % 5.2 % (3.0-9.0); NEUT # 6.1 10*3/uL (2.3-7.9); NEUT % 72.1 % (47.0-73.0); NUCLEATED RED BLOOD CELL 0.0 % (0.0-0.0); NUCLEATED RED BLOOD CELL 0.0 10*3/uL (0.0-0.0); PLATELET COUNT AUTOMATED 363 10*3/uL (130-400); RED CELL DISTRI WIDTH 13.1 % (0-14.5)
[2024-08-17 12:28] LABS: BUN 7 mg/dl (9-23)
[2024-08-17 12:30] LABS: SGPT/ALT < 7 U/L (5-49)
[2024-08-17] MEDS ORDERED: Metoclopramide Hydrochloride 10 MG/2 ML VIAL ONE (12:36)
[2024-08-17] MEDS ORDERED: diphenhydrAMINE hydrochloride 50 MG/ML VIAL ONE (12:36)
[2024-08-17] MEDS ORDERED: Ciprofloxacin Hydrochloride 500 MG TAB PO ONE (13:15)
[2024-08-17] MEDS ORDERED: metroNIDAZOLE 500 MG TAB PO ONE (13:15)
[2024-08-17] MEDS ORDERED: PERCOCET 5-3251 EACH PO (13:18)
[2024-08-17] MEDS ORDERED: metroNIDAZOLE 500 MG TAB ONE (13:55)
[2024-08-17] MEDS ORDERED: Ciprofloxacin Hydrochloride 500 MG TAB ONE (13:55)
== END 2024-08-17 13:27 | disposition home or self-care (01) ==
LOC: ED 11:42
PROVIDERS: Emergency Medicine
DX: K52.9 Noninfective gastroenteritis and colitis, unspecified (principal); R11.2 Nausea with vomiting, unspecified; Z91.041 Radiographic dye allergy status; Z88.5 Allergy status to narcotic agent; Z88.6 Allergy status to analgesic agent; Z88.8 Allergy status to other drugs, medicaments and biological substances; Z79.899 Other long term (current) drug therapy; Z90.49 Acquired absence of other specified parts of digestive tract; Z90.711 Acquired absence of uterus with remaining cervical stump

== ENCOUNTER 2024-10-16 18:33 | Emergency (ER) | payer OTHER ==
[~2024-10-16] VITALS: Ht 175.2 cm; Wt 54.4 kg
[2024-10-16] MEDS ORDERED: TYLENOL EXTRA500 MG PO (20:39)
[2024-10-16] MEDS ORDERED: OXYCODONE HCL (IR) 5 MG TAB PO ONE ×2 (20:45)
== END 2024-10-16 20:49 | disposition home or self-care (01) ==
LOC: ED 18:33
DX: G89.29 Other chronic pain (principal); M54.50 Low back pain, unspecified; Z91.041 Radiographic dye allergy status; Z88.5 Allergy status to narcotic agent; Z88.6 Allergy status to analgesic agent; Z88.8 Allergy status to other drugs, medicaments and biological substances; Z90.710 Acquired absence of both cervix and uterus; Z90.49 Acquired absence of other specified parts of digestive tract

== ENCOUNTER 2025-01-14 14:27 | Emergency (ER) | payer OTHER ==
[2025-01-14] MEDS ORDERED: SODIUM CHLORIDE 0.9% 1,000 ML IV ONE (15:25)
[2025-01-14] MEDS ORDERED: Ondansetron Hydrochloride 4 MG/2 ML VIAL IV ONE (15:25)
[2025-01-14] MEDS ORDERED: HYDROmorphONE Hydrochloride 0.5 MG/0.5 ML SYRINGE IV ONE ×2 (15:25→17:40)
[2025-01-14] MEDS ORDERED: IOHEXOL 300 MG/ML 100 ML VIAL IV ONE (15:30)
[2025-01-14 15:37] LABS: BASO # 0.1 10*3/uL (0.0-0.1); BASO % 0.8 % (0.0-1.0); EOS # 0.1 10*3/uL (0.0-0.4); EOS % 0.9 % (1.0-4.0); MEAN CELL VOLUME 97.1 fl (81.0-99.0); MEAN CORPUSCULAR HGB 31.9 pg (27.0-31.0); MEAN PLATELET VOLUME 9.0 fl (9.6-12.3); MONO # 0.5 10*3/uL (0.1-1.0); MONO % 5.1 % (3.0-9.0); NEUT # 6.7 10*3/uL (2.3-7.9); NEUT % 72.9 % (47.0-73.0); NUCLEATED RED BLOOD CELL 0.0 % (0.0-0.0); NUCLEATED RED BLOOD CELL 0.0 10*3/uL (0.0-0.0); PLATELET COUNT AUTOMATED 455 10*3/uL (130-400); RED CELL DISTRI WIDTH 13.1 % (0-14.5)
[2025-01-14 16:02] LABS: BUN 7 mg/dl (9-23)
[2025-01-14 16:04] LABS: SGPT/ALT < 7 U/L (5-49)
[2025-01-14 16:57] LABS: BILIRUBIN Negative (Negative); BLOOD Negative (Negative); CLARITY Cloudy (Clear); COLOR Yellow (Yellow); KETONE Negative (Negative); LEUKO ESTERASE Trace (Negative); NITRITE Negative (Negative); PH 7.5 (4.5-8.0); SPECIFIC GRAVITY 1.010 (1.001-1.030); UROBILINOGEN 0.2 E.U./dl (0.0-1.0)
[2025-01-14 17:14] LABS: BACTERIA 2+; RBC 0-2 rbc/hpf (0-2)
[2025-01-14] MEDS ORDERED: PREDNISONE10 M1 PO (17:33)
== END 2025-01-14 17:49 | disposition home or self-care (01) ==
LOC: ED 14:27
PROVIDERS: Nurse Practitioner Family
DX: K52.9 Noninfective gastroenteritis and colitis, unspecified (principal); Z88.5 Allergy status to narcotic agent; Z88.8 Allergy status to other drugs, medicaments and biological substances; Z98.890 Other specified postprocedural states; Z87.442 Personal history of urinary calculi; Z90.710 Acquired absence of both cervix and uterus; Z90.49 Acquired absence of other specified parts of digestive tract; Z79.899 Other long term (current) drug therapy

== ENCOUNTER 2025-02-02 18:44 | Emergency (ER) | payer OTHER ==
[~2025-02-02] VITALS: Ht 175.2 cm; Wt 56.7 kg
[~2025-02-02 18:44] MED LIST changes: +PREDNISONE10 M1 PO
[2025-02-02] MEDS ORDERED: OXYCODONE HCL (IR) 10 MG TABLET PO ONE (20:15)
[2025-02-02] MEDS ORDERED: OXYCODONE5 M1 PO (20:15)
[2025-02-03] MEDS ORDERED: VIBRAMYCIN100 MG PO (11:29)
== END 2025-02-02 20:21 | disposition home or self-care (01) ==
LOC: ED 18:44
DX: L02.31 Cutaneous abscess of buttock (principal); Z88.1 Allergy status to other antibiotic agents; Z88.5 Allergy status to narcotic agent; Z88.8 Allergy status to other drugs, medicaments and biological substances; Z90.49 Acquired absence of other specified parts of digestive tract; Z90.710 Acquired absence of both cervix and uterus; Z98.890 Other specified postprocedural states; Z87.442 Personal history of urinary calculi

== ENCOUNTER 2025-02-03 11:12 | Emergency (ER) | payer OTHER ==
[~2025-02-03] VITALS: Ht 175.2 cm; Wt 54.4 kg
[~2025-02-03 11:12] MED LIST changes: +OXYCODONE5 M1 PO
[2025-02-03] MEDS ORDERED: VIBRAMYCIN100 MG PO (11:29)
[2025-02-03] MEDS ORDERED: Acetaminophen/Hydrocodone HP 10/325 PO ONE (11:30)
== END 2025-02-03 11:54 | disposition home or self-care (01) ==
LOC: ED 11:12
DX: L02.31 Cutaneous abscess of buttock (principal); Z88.5 Allergy status to narcotic agent; Z90.710 Acquired absence of both cervix and uterus; Z90.49 Acquired absence of other specified parts of digestive tract